=== PATIENT | female | born 1950 | race Caucasian/White ===

== ENCOUNTER 2018-04-13 12:08 | Inpatient (IN) | payer MEDICARE, OTHER ==
[2018-04-13] MEDS: DIAZEPAM 5 MG TAB PO (07:00)
[2018-04-13] MEDS: SOD CHLORIDE 0.45% 1,000 ML IV (07:00)
[2018-04-13] MEDS: FAMOTIDINE 20 MG TAB PO (07:00)
[2018-04-13] MEDS: DIPHENHYDRAMINE 50 MG CAP PO (07:00)
[2018-04-13 13:24] LABS: ADD MAN DIFF? NO
[2018-04-13 13:26] LABS: WHITE BLOOD COUNT 11.6 10^3/ul (4.8-10.8)
[2018-04-13 13:26] LABS: BASOPHIL # 0.1 10^3/ul (0.0-0.1); BASOPHILS % 0.7 % (0.0-2.0); EOSINOPHILS # 0.2 10^3/ul (0.0-0.5); EOSINOPHILS % 1.7 % (0.0-7.0); HEMATOCRIT 38.9 % (37.0-47.0); HEMOGLOBIN 12.6 g/dl (12.0-16.0); LYMPHOCYTES # 2.3 10^3/ul (0.8-2.9); LYMPHOCYTES % 20.1 % (15.0-51.0); MEAN CORPUSCULAR HEMOGLOBIN 31.7 pg (29.0-33.0); MEAN CORPUSCULAR HGB CONC 32.4 g/dl (32.0-37.0); MEAN PLATELET VOLUME 10.9 fl (7.4-10.4); MONOCYTE # 0.6 10^3/ul (0.3-0.9); MONOCYTES % 5.4 % (0.0-11.0); NEUTROPHIL # 8.3 10^3/ul (1.6-7.5); NEUTROPHILS % 71.6 % (39.0-77.0); PLATELET COUNT 257 10^3/UL (140-415); RED BLOOD COUNT 3.97 10^6/ul (4.20-5.40); RED CELL DISTRIBUTION WIDTH 13.9 % (11.5-14.5)
[2018-04-13 13:43] LABS: ANION GAP 13 (8-16); BLOOD UREA NITROGEN 38 mg/dl (7-20); CALCIUM 8.9 mg/dl (8.4-10.2); CARBON DIOXIDE 28 mmol/L (21-31); CHLORIDE 104 mmol/L (97-110); CHOL/HDL RATIO 4.4 RATIO; CHOLESTEROL 183 mg/dl (100-200); CREATININE 1.81 mg/dl (0.44-1.00); GLUCOSE 229 mg/dl (70-220); HDL CHOLESTEROL 41 mg/dl (35-98); LDL CHOLESTEROL,CALCULATED 108 mg/dl; POTASSIUM 4.8 mmol/L (3.5-5.1); SODIUM 140 mmol/L (135-144); TRIGLYCERIDES 168 mg/dl (0-149)
[2018-04-13 13:44] LABS: PROTIME 12.2 Sec (11.9-14.9)
[2018-04-13 13:45] LABS: PARTIAL THROMBOPLASTIN TIME 27.7 Sec (25.0-35.0)
[2018-04-13] MEDS ORDERED: VERAPAMIL 5 MG INJ (14:32)
[2018-04-13] MEDS ORDERED: FENTAnyl 50 MCG/ML VIAL ×2 (14:32→15:23)
[2018-04-13] MEDS ORDERED: MIDAZOLAM 1 MG/ML 2 ML INJ (14:32)
[2018-04-13] MEDS ORDERED: NITROGLYCERIN (IC) 100 MCG/ML INJ (14:32)
[2018-04-13] MEDS ORDERED: HEPARIN 1000 UNITS/ML 10 ML INJ (14:32)
[2018-04-13] MEDS ORDERED: IODIXANOL LOCM 100 ML BTL (14:32)
[2018-04-13] MEDS ORDERED: BIVALIRUDIN 250MG /NS 50 ML 50 ML IVPB ×2 (16:23→16:33)
[2018-04-13] MEDS ORDERED: TICAGRELOR 90 MG TABLET (16:23)
[2018-04-13] MEDS ORDERED: ASPIRIN 325 MG TAB (17:04)
[2018-04-13] MEDS ORDERED: AL HYDROX/MG HYDROX/SIMETH 30 ML CUP PO (17:30)
[2018-04-13] MEDS ORDERED: GLUCOSE GEL 15 GRAM TUBE BUCCAL (18:00)
[2018-04-13] MEDS ORDERED: GLUCOSE GEL 15 GRAM TUBE PO ×2 (18:00)
[2018-04-13] MEDS ORDERED: DEXTROSE 50% 50 ML SYRINGE IV ×2 (18:00)
[2018-04-13] MEDS ORDERED: GLUCAGON 1 MG INJ IM (18:00)
[2018-04-13] MEDS: SOD CHLORIDE 0.9% 1,000 ML IV (18:11)
[2018-04-13] MEDS: morphine 2 MG INJ IV (19:00)
[2018-04-13] MEDS ORDERED: LOPERAMIDE 2 MG CAP PO (19:00)
[2018-04-13] MEDS ORDERED: NITROGLYCERIN (SL) 0.4 MG TAB SL (19:00)
[2018-04-13 19:32] LABS: HEMOGLOBIN A1C 6.8 % (0-5.9)
[2018-04-13] MEDS: ACETYLCYSTEINE 600 MG CAP PO (20:18)
[2018-04-13] MEDS: ATORVASTATIN 20 MG TAB PO (20:18)
[2018-04-13] MEDS: INSULIN ASPART [NOVOLOG] 3 ML PEN SC (20:22)
[2018-04-13] MEDS: INSULIN GLARGINE [LANTus] (100 UNITS/ML) SYG SC (20:22)
[2018-04-13] MEDS: TICAGRELOR 90 MG TABLET PO (20:22)
[2018-04-14] MEDS: ZOLPIDEM 5 MG TAB PO (00:43)
[2018-04-14] MEDS: SOD CHLORIDE 0.45% 1,000 ML IV ×2 (02:00→04:04)
[2018-04-14] MEDS: ACCU-CHEK XX (02:00)
[2018-04-14] MEDS: LORAZEPAM 2 MG INJ IV ×3 (03:59→19:11)
[2018-04-14] MEDS: ONDANSETRON 4 MG INJ IV (04:45)
[2018-04-14 05:22] LABS: ADD MAN DIFF? NO
[2018-04-14 05:27] LABS: WHITE BLOOD COUNT 10.1 10^3/ul (4.8-10.8)
[2018-04-14 05:27] LABS: BASOPHILS % 0.4 % (0.0-2.0); EOSINOPHILS # 0.2 10^3/ul (0.0-0.5); EOSINOPHILS % 1.5 % (0.0-7.0); HEMOGLOBIN 10.8 g/dl (12.0-16.0); LYMPHOCYTES # 2.1 10^3/ul (0.8-2.9); LYMPHOCYTES % 21.1 % (15.0-51.0); MEAN CORPUSCULAR HEMOGLOBIN 31.1 pg (29.0-33.0); MEAN CORPUSCULAR HGB CONC 31.8 g/dl (32.0-37.0); MEAN PLATELET VOLUME 11.3 fl (7.4-10.4); MONOCYTE # 0.8 10^3/ul (0.3-0.9); NEUTROPHIL # 6.9 10^3/ul (1.6-7.5); NEUTROPHILS % 68.4 % (39.0-77.0); PLATELET COUNT 235 10^3/UL (140-415); RED BLOOD COUNT 3.47 10^6/ul (4.20-5.40); RED CELL DISTRIBUTION WIDTH 14.2 % (11.5-14.5)
[2018-04-14 05:51] LABS: ANION GAP 10 (8-16); BLOOD UREA NITROGEN 39 mg/dl (7-20); CALCIUM 8.4 mg/dl (8.4-10.2); CARBON DIOXIDE 25 mmol/L (21-31); CHLORIDE 107 mmol/L (97-110); CREATINE KINASE 100 IU/L (23-200); GLUCOSE 224 mg/dl (70-220); POTASSIUM 4.3 mmol/L (3.5-5.1); SODIUM 138 mmol/L (135-144)
[2018-04-14 05:54] LABS: CK INDEX 1.4; CK-MB 1.37 ng/ml (0.0-2.4)
[2018-04-14 06:00] LABS: TROPONIN-I 0.328 ng/ml (0.000-0.120)
[2018-04-14] MEDS: ASPIRIN (EC) 81 MG TAB PO (08:48)
[2018-04-14] MEDS: ACETYLCYSTEINE 600 MG CAP PO ×2 (08:49→20:22)
[2018-04-14] MEDS: CALCITRIOL 0.25 MCG CAP PO (08:49)
[2018-04-14] MEDS: TICAGRELOR 90 MG TABLET PO ×2 (08:49→20:33)
[2018-04-14] MEDS: INSULIN ASPART [NOVOLOG] 3 ML PEN SC ×6 (08:51→20:31)
[2018-04-14] MEDS ORDERED: AL HYDROX/MG HYDROX/SIMETH 30 ML CUP PO (10:30)
[2018-04-14 11:27] LABS: FREE T4 (FREE THYROXINE) 1.34 ng/dl (0.78-2.44)
[2018-04-14] MEDS: SOD CHLORIDE 0.9% 1,000 ML IV (11:58)
[2018-04-14] MEDS: LEVOTHYROXINE 75 MCG TAB PO (11:58)
[2018-04-14] MEDS: PANTOPRAZOLE 40 MG INJ IV (12:02)
[2018-04-14 16:13] LABS: CREATINE KINASE 107 IU/L (23-200)
[2018-04-14 16:27] LABS: CK-MB 4.31 ng/ml (0.0-2.4)
[2018-04-14] MEDS: ATORVASTATIN 20 MG TAB PO (20:22)
[2018-04-14] MEDS: INSULIN GLARGINE [LANTus] (100 UNITS/ML) SYG SC (20:48)
[2018-04-15] MEDS: ZOLPIDEM 5 MG TAB PO (01:07)
[2018-04-15] MEDS: LORAZEPAM 2 MG INJ IV ×3 (01:08→18:41)
[2018-04-15] MEDS: SOD CHLORIDE 0.9% 1,000 ML IV ×2 (01:08→17:55)
[2018-04-15] MEDS: ACCU-CHEK XX (02:00)
[2018-04-15 05:38] LABS: ADD MAN DIFF? NO
[2018-04-15 05:45] LABS: WHITE BLOOD COUNT 10.8 10^3/ul (4.8-10.8)
[2018-04-15 05:45] LABS: BASOPHIL # 0.1 10^3/ul (0.0-0.1); BASOPHILS % 0.5 % (0.0-2.0); EOSINOPHILS # 0.2 10^3/ul (0.0-0.5); EOSINOPHILS % 1.8 % (0.0-7.0); HEMATOCRIT 30.5 % (37.0-47.0); HEMOGLOBIN 9.8 g/dl (12.0-16.0); LYMPHOCYTES # 2.1 10^3/ul (0.8-2.9); LYMPHOCYTES % 19.1 % (15.0-51.0); MEAN CORPUSCULAR HEMOGLOBIN 31.5 pg (29.0-33.0); MEAN CORPUSCULAR HGB CONC 32.1 g/dl (32.0-37.0); MEAN CORPUSCULAR VOLUME 98.1 fl (82.0-101.0); MEAN PLATELET VOLUME 11.7 fl (7.4-10.4); MONOCYTE # 0.9 10^3/ul (0.3-0.9); NEUTROPHIL # 7.6 10^3/ul (1.6-7.5); NEUTROPHILS % 70.1 % (39.0-77.0); PLATELET COUNT 215 10^3/UL (140-415); RED BLOOD COUNT 3.11 10^6/ul (4.20-5.40); RED CELL DISTRIBUTION WIDTH 14.4 % (11.5-14.5)
[2018-04-15 06:01] LABS: ANION GAP 12 (8-16); BLOOD UREA NITROGEN 48 mg/dl (7-20); CALCIUM 8.2 mg/dl (8.4-10.2); CARBON DIOXIDE 23 mmol/L (21-31); CHLORIDE 109 mmol/L (97-110); CREATININE 2.24 mg/dl (0.44-1.00); GLUCOSE 162 mg/dl (70-220); POTASSIUM 4.7 mmol/L (3.5-5.1); SODIUM 139 mmol/L (135-144)
[2018-04-15] MEDS: LEVOTHYROXINE 75 MCG TAB PO (06:11)
[2018-04-15 06:24] LABS: MAGNESIUM 2.5 mg/dl (1.7-2.5)
[2018-04-15 06:24] LABS: PHOSPHORUS 3.7 mg/dl (2.5-4.9)
[2018-04-15] MEDS ORDERED: LEVOTHYROXINE 75 MCG TAB PO (07:00)
[2018-04-15] MEDS: ACETYLCYSTEINE 600 MG CAP PO (08:29)
[2018-04-15] MEDS: ASPIRIN (EC) 81 MG TAB PO (08:30)
[2018-04-15] MEDS: CALCITRIOL 0.25 MCG CAP PO (08:30)
[2018-04-15] MEDS: INSULIN ASPART [NOVOLOG] 3 ML PEN SC ×7 (08:31→20:36)
[2018-04-15] MEDS: TICAGRELOR 90 MG TABLET PO ×2 (08:33→20:40)
[2018-04-15] MEDS: ATROPINE 1 MG/10 ML SYRINGE IV (11:11)
[2018-04-15 12:02] LABS: AADO2 Arterial 28.2 mmHg (7.0-24.0); Allen Test ACCEPTAB; Arterial Base Excess -3.6 mmol/L (-3.0-3); Arterial Blood Gas Oxygen Sat 95.1 mmHG (95.0-98.0); Arterial COHb 0.1 % (0.0-3.0); Arterial Fraction of Oxyhgb 94.7 % (93.0-99.0); Arterial MetHb 0.3 % (0.0-1.5); Arterial pCO2 36.4 mmhg (35-45); MODE ROOM AIR; Site Right Radial
[2018-04-15] MEDS: ISOSORBIDE DINITRATE 10 MG TAB PO ×2 (13:03→20:37)
[2018-04-15 13:08] LABS: ADD UMIC YES; UR ASCORBIC ACID 20 mg/dL (NEGATIVE); UR BACTERIA FEW /HPF (NONE SEEN); UR BILIRUBIN (Dip) NEGATIVE (NEGATIVE); UR BLOOD (Dip) NEGATIVE (NEGATIVE); UR CLARITY SLIGHTLY CLOUDY (CLEAR); UR COLOR YELLOW (YELLOW); UR GLUCOSE (Dip) NEGATIVE (NEGATIVE); UR KETONES (Dip) NEGATIVE (NEGATIVE); UR LEUKOCYTE ESTERASE (Dip) TRACE Leu/ul (NEGATIVE); UR MUCUS FEW /HPF (NONE SEEN); UR NITRITE (Dip) NEGATIVE (NEGATIVE); UR RBC 1 /HPF (0-5); UR TOTAL PROTEIN (Dip) NEGATIVE (NEGATIVE); UR UROBILINOGEN (Dip) NEGATIVE (NEGATIVE); UR WBC 17 /HPF (0-5)
[2018-04-15 14:24] LABS: CREATINE KINASE 117 IU/L (23-200)
[2018-04-15 14:37] LABS: CK INDEX 3.1; CK-MB 3.57 ng/ml (0.0-2.4)
[2018-04-15 18:57] LABS: CREATINE KINASE 122 IU/L (23-200)
[2018-04-15 19:08] LABS: CK INDEX 2.7; CK-MB 3.31 ng/ml (0.0-2.4)
[2018-04-15] MEDS: morphine 2 MG INJ IV (20:01)
[2018-04-15] MEDS: ONDANSETRON 4 MG INJ IV (20:08)
[2018-04-15] MEDS: ATORVASTATIN 20 MG TAB PO (20:41)
[2018-04-15] MEDS: INSULIN GLARGINE [LANTus] (100 UNITS/ML) SYG SC (21:00)
[2018-04-16] MEDS: ACCU-CHEK XX (02:00)
[2018-04-16] MEDS: ZOLPIDEM 5 MG TAB PO ×2 (04:08→21:30)
[2018-04-16 05:31] LABS: ADD MAN DIFF? NO
[2018-04-16 05:44] LABS: BASOPHIL # 0.1 10^3/ul (0.0-0.1); BASOPHILS % 0.6 % (0.0-2.0); EOSINOPHILS # 0.2 10^3/ul (0.0-0.5); EOSINOPHILS % 1.9 % (0.0-7.0); HEMATOCRIT 30.8 % (37.0-47.0); HEMOGLOBIN 9.6 g/dl (12.0-16.0); LYMPHOCYTES # 1.8 10^3/ul (0.8-2.9); LYMPHOCYTES % 19.7 % (15.0-51.0); MEAN CORPUSCULAR HEMOGLOBIN 31.5 pg (29.0-33.0); MEAN CORPUSCULAR HGB CONC 31.2 g/dl (32.0-37.0); MEAN PLATELET VOLUME 11.7 fl (7.4-10.4); MONOCYTE # 0.7 10^3/ul (0.3-0.9); MONOCYTES % 7.3 % (0.0-11.0); NEUTROPHIL # 6.3 10^3/ul (1.6-7.5); NEUTROPHILS % 69.9 % (39.0-77.0); PLATELET COUNT 204 10^3/UL (140-415); RED BLOOD COUNT 3.05 10^6/ul (4.20-5.40); RED CELL DISTRIBUTION WIDTH 14.5 % (11.5-14.5)
[2018-04-16 06:06] LABS: PHOSPHORUS 3.9 mg/dl (2.5-4.9)
[2018-04-16 06:06] LABS: MAGNESIUM 2.4 mg/dl (1.7-2.5)
[2018-04-16 06:24] LABS: ANION GAP 9 (8-16); BLOOD UREA NITROGEN 43 mg/dl (7-20); CALCIUM 8.4 mg/dl (8.4-10.2); CARBON DIOXIDE 21 mmol/L (21-31); CHLORIDE 112 mmol/L (97-110); CREATININE 2.14 mg/dl (0.44-1.00); GLUCOSE 120 mg/dl (70-220); SODIUM 138 mmol/L (135-144)
[2018-04-16] MEDS: LEVOTHYROXINE 75 MCG TAB PO (06:49)
[2018-04-16] MEDS: INSULIN ASPART [NOVOLOG] 3 ML PEN SC ×7 (07:35→20:44)
[2018-04-16] MEDS: TICAGRELOR 90 MG TABLET PO ×2 (08:55→20:45)
[2018-04-16] MEDS: ASPIRIN (EC) 81 MG TAB PO (08:56)
[2018-04-16] MEDS: CALCITRIOL 0.25 MCG CAP PO (08:58)
[2018-04-16] MEDS: ISOSORBIDE DINITRATE 10 MG TAB PO ×3 (08:58→20:46)
[2018-04-16] MEDS ORDERED: CEFAZOLIN 1 GM/50 ML (PMX) 50 ML IVPB (14:18)
[2018-04-16] MEDS ORDERED: POLYMYXIN/BACITRACIN 1L IRRIG (14:23)
[2018-04-16] MEDS ORDERED: FENTAnyl 50 MCG/ML VIAL (14:46)
[2018-04-16] MEDS ORDERED: MIDAZOLAM 1 MG/ML 2 ML INJ (14:47)
[2018-04-16] MEDS ORDERED: ETOMIDATE 20 MG INJ (14:47)
[2018-04-16] MEDS ORDERED: LEVALBUTEROL (NEB) 1.25 MG/0.5 ML AMP (15:29)
[2018-04-16] MEDS ORDERED: IPRATROPIUM (NEB) 0.5 MG/2.5 ML AMP (15:29)
[2018-04-16] MEDS ORDERED: DIPHENHYDRAMINE 50 MG INJ IV (15:30)
[2018-04-16] MEDS ORDERED: ONDANSETRON 4 MG INJ IV (15:30)
[2018-04-16] MEDS ORDERED: hydrALAzine 20 MG INJ IV (15:30)
[2018-04-16] MEDS ORDERED: FENTAnyl 50 MCG/ML VIAL IV (15:30)
[2018-04-16] MEDS: IPRATROPIUM (NEB) 0.5 MG/2.5 ML AMP HHN (15:41)
[2018-04-16] MEDS: LEVALBUTEROL (NEB) 1.25 MG/0.5 ML AMP HHN (15:42)
[2018-04-16] MEDS ORDERED: morphine 2 MG INJ IV (16:30)
[2018-04-16] MEDS ORDERED: [UNRECOGNIZED DRUG - REMARK] XX (16:30)
[2018-04-16] MEDS: SOD CHLORIDE 0.9% 1,000 ML IV (16:46)
[2018-04-16] MEDS: CEFAZOLIN 1 GM/50 ML (PMX) 50 ML IVPB (16:46)
[2018-04-16] MEDS: METOCLOPRAMIDE 10 MG INJ IV (16:53)
[2018-04-16] MEDS: INSULIN GLARGINE [LANTus] (100 UNITS/ML) SYG SC (20:44)
[2018-04-16] MEDS: ATORVASTATIN 20 MG TAB PO (20:47)
[2018-04-17] MEDS: morphine 2 MG INJ IV ×3 (01:25→20:44)
[2018-04-17] MEDS: ONDANSETRON 4 MG INJ IV ×3 (01:25→20:44)
[2018-04-17] MEDS: ACCU-CHEK XX (02:22)
[2018-04-17] MEDS: CEFAZOLIN 1 GM/50 ML (PMX) 50 ML IVPB ×2 (04:21→16:52)
[2018-04-17] MEDS: LEVOTHYROXINE 75 MCG TAB PO (06:20)
[2018-04-17] MEDS: INSULIN ASPART [NOVOLOG] 3 ML PEN SC ×7 (07:35→20:39)
[2018-04-17] MEDS: ISOSORBIDE DINITRATE 10 MG TAB PO ×3 (08:56→20:39)
[2018-04-17] MEDS: CALCITRIOL 0.25 MCG CAP PO (08:56)
[2018-04-17] MEDS: ASPIRIN (EC) 81 MG TAB PO (08:56)
[2018-04-17] MEDS: TICAGRELOR 90 MG TABLET PO ×2 (08:58→20:42)
[2018-04-17 13:00] LABS: ADD MAN DIFF? NO
[2018-04-17 13:03] LABS: WHITE BLOOD COUNT 8.9 10^3/ul (4.8-10.8)
[2018-04-17 13:03] LABS: BASOPHILS % 0.4 % (0.0-2.0); EOSINOPHILS # 0.2 10^3/ul (0.0-0.5); EOSINOPHILS % 1.9 % (0.0-7.0); HEMATOCRIT 27.9 % (37.0-47.0); HEMOGLOBIN 8.9 g/dl (12.0-16.0); LYMPHOCYTES # 1.3 10^3/ul (0.8-2.9); LYMPHOCYTES % 14.1 % (15.0-51.0); MEAN CORPUSCULAR HEMOGLOBIN 31.2 pg (29.0-33.0); MEAN CORPUSCULAR HGB CONC 31.9 g/dl (32.0-37.0); MEAN CORPUSCULAR VOLUME 97.9 fl (82.0-101.0); MEAN PLATELET VOLUME 11.3 fl (7.4-10.4); MONOCYTE # 0.7 10^3/ul (0.3-0.9); MONOCYTES % 7.7 % (0.0-11.0); NEUTROPHIL # 6.7 10^3/ul (1.6-7.5); NEUTROPHILS % 75.2 % (39.0-77.0); PLATELET COUNT 248 10^3/UL (140-415); RED BLOOD COUNT 2.85 10^6/ul (4.20-5.40); RED CELL DISTRIBUTION WIDTH 14.6 % (11.5-14.5)
[2018-04-17 13:20] LABS: ANION GAP 9 (8-16); BLOOD UREA NITROGEN 32 mg/dl (7-20); CALCIUM 8.4 mg/dl (8.4-10.2); CARBON DIOXIDE 22 mmol/L (21-31); CHLORIDE 113 mmol/L (97-110); CREATININE 1.71 mg/dl (0.44-1.00); GLUCOSE 95 mg/dl (70-220); POTASSIUM 4.2 mmol/L (3.5-5.1); SODIUM 140 mmol/L (135-144)
[2018-04-17] MEDS: FUROSEMIDE 20 MG INJ IV (13:53)
[2018-04-17] MEDS: ATORVASTATIN 20 MG TAB PO (20:39)
[2018-04-17] MEDS: INSULIN GLARGINE [LANTus] (100 UNITS/ML) SYG SC (21:18)
[2018-04-18] MEDS: ACCU-CHEK XX (02:00)
[2018-04-18] MEDS: CEFAZOLIN 1 GM/50 ML (PMX) 50 ML IVPB ×2 (04:11→16:52)
[2018-04-18] MEDS: LEVOTHYROXINE 75 MCG TAB PO (05:10)
[2018-04-18 06:50] LABS: ALANINE AMINOTRANSFERASE 16 IU/L (13-69); ALBUMIN/GLOBULIN RATIO 0.93; ALKALINE PHOSPHATASE 68 IU/L (42-121); ANION GAP 11 (8-16); ASPARTATE AMINO TRANSFERASE 27 IU/L (15-46); BILIRUBIN,INDIRECT 0.2 mg/dl (0-1.1); BILIRUBIN,TOTAL 0.2 mg/dl (0.2-1.3); BLOOD UREA NITROGEN 33 mg/dl (7-20); CALCIUM 8.6 mg/dl (8.4-10.2); CARBON DIOXIDE 21 mmol/L (21-31); CHLORIDE 112 mmol/L (97-110); CREATININE 1.87 mg/dl (0.44-1.00); GLUCOSE 152 mg/dl (70-220); POTASSIUM 3.8 mmol/L (3.5-5.1); SODIUM 140 mmol/L (135-144); TOTAL PROTEIN 6.2 g/dl (6.1-8.1)
[2018-04-18] MEDS: INSULIN ASPART [NOVOLOG] 3 ML PEN SC ×7 (07:44→20:05)
[2018-04-18] MEDS: ASPIRIN (EC) 81 MG TAB PO (08:18)
[2018-04-18] MEDS: ISOSORBIDE DINITRATE 10 MG TAB PO ×3 (08:18→20:09)
[2018-04-18] MEDS: CALCITRIOL 0.25 MCG CAP PO (08:18)
[2018-04-18] MEDS: FUROSEMIDE 20 MG INJ IV (08:18)
[2018-04-18] MEDS: TICAGRELOR 90 MG TABLET PO ×2 (08:23→20:07)
[2018-04-18] MEDS: INSULIN GLARGINE [LANTus] (100 UNITS/ML) SYG SC (20:08)
[2018-04-18] MEDS: ATORVASTATIN 20 MG TAB PO (20:08)
[2018-04-18] MEDS: ONDANSETRON 4 MG INJ IV (22:09)
[2018-04-18] MEDS: morphine 2 MG INJ IV (22:11)
[2018-04-19] MEDS: ACCU-CHEK XX (02:00)
[2018-04-19] MEDS: CEFAZOLIN 1 GM/50 ML (PMX) 50 ML IVPB (04:45)
[2018-04-19] MEDS: LEVOTHYROXINE 75 MCG TAB PO (04:55)
[2018-04-19] MEDS: INSULIN ASPART [NOVOLOG] 3 ML PEN SC ×7 (07:54→22:23)
[2018-04-19] MEDS: FUROSEMIDE 20 MG INJ IV ×2 (08:38→17:03)
[2018-04-19] MEDS: ISOSORBIDE DINITRATE 10 MG TAB PO ×3 (08:39→20:52)
[2018-04-19] MEDS: ASPIRIN (EC) 81 MG TAB PO (08:39)
[2018-04-19] MEDS: TICAGRELOR 90 MG TABLET PO ×2 (08:53→20:51)
[2018-04-19] MEDS: CALCITRIOL 0.25 MCG CAP PO (10:38)
[2018-04-19] MEDS: BISACODYL (EC) 5 MG TAB PO (13:38)
[2018-04-19 13:43] LABS: CREATINE KINASE 90 IU/L (23-200)
[2018-04-19 13:57] LABS: CK INDEX 0.7; CK-MB 0.66 ng/ml (0.0-2.4)
[2018-04-19 14:02] LABS: TROPONIN-I 0.201 ng/ml (0.000-0.120)
[2018-04-19] MEDS: MEROPENEM 500MG/50 ML (PMX) 50 ML IVPB ×2 (14:06→20:53)
[2018-04-19] MEDS: ATORVASTATIN 20 MG TAB PO (20:50)
[2018-04-19] MEDS ORDERED: NA PHOSPHATE/BIPHOS 133 ML ENEMA PR (21:30)
[2018-04-19] MEDS: MAGNESIUM HYDROXIDE 30ML CUP PO (22:10)
[2018-04-19] MEDS: DIPHENHYDRAMINE 25 MG CAP PO (22:10)
[2018-04-19] MEDS: LORAZEPAM 2 MG INJ IV (22:14)
[2018-04-19] MEDS: INSULIN GLARGINE [LANTus] (100 UNITS/ML) SYG SC (22:22)
[2018-04-20] MEDS: ACCU-CHEK XX (02:19)
[2018-04-20] MEDS: LEVOTHYROXINE 75 MCG TAB PO (06:23)
[2018-04-20 07:44] LABS: MAGNESIUM 1.7 mg/dl (1.7-2.5)
[2018-04-20 07:44] LABS: PHOSPHORUS 4.3 mg/dl (2.5-4.9)
[2018-04-20] MEDS: INSULIN ASPART [NOVOLOG] 3 ML PEN SC ×7 (07:44→21:00)
[2018-04-20 07:49] LABS: CREATINE KINASE 75 IU/L (23-200)
[2018-04-20 07:51] LABS: ANION GAP 13 (8-16); BLOOD UREA NITROGEN 40 mg/dl (7-20); CALCIUM 9.3 mg/dl (8.4-10.2); CARBON DIOXIDE 27 mmol/L (21-31); CHLORIDE 104 mmol/L (97-110); CREATININE 1.87 mg/dl (0.44-1.00); GLUCOSE 152 mg/dl (70-220); POTASSIUM 3.7 mmol/L (3.5-5.1); SODIUM 140 mmol/L (135-144)
[2018-04-20 07:57] LABS: CK INDEX 0.7; CK-MB 0.55 ng/ml (0.0-2.4); TROPONIN-I 0.246 ng/ml (0.000-0.120)
[2018-04-20] MEDS: ISOSORBIDE DINITRATE 10 MG TAB PO ×3 (08:11→22:00)
[2018-04-20] MEDS: CALCITRIOL 0.25 MCG CAP PO (08:11)
[2018-04-20] MEDS: ASPIRIN (EC) 81 MG TAB PO (08:11)
[2018-04-20] MEDS: FUROSEMIDE 20 MG INJ IV (08:12)
[2018-04-20] MEDS: MEROPENEM 500MG/50 ML (PMX) 50 ML IVPB ×2 (08:12→21:45)
[2018-04-20] MEDS: TICAGRELOR 90 MG TABLET PO ×2 (08:55→21:53)
[2018-04-20] MEDS: MAGNESIUM HYDROXIDE 30ML CUP PO (12:51)
[2018-04-20] MEDS: ATORVASTATIN 20 MG TAB PO (21:46)
[2018-04-20] MEDS: DIPHENHYDRAMINE 50 MG CAP PO (21:46)
[2018-04-20] MEDS: INSULIN GLARGINE [LANTus] (100 UNITS/ML) SYG SC (21:54)
[2018-04-20] MEDS: LORAZEPAM 2 MG INJ IV (21:55)
[2018-04-20] MEDS ORDERED: morphine LIQ (10 MG/5 ML) CUP PO (22:00)
[2018-04-20] MEDS: DOCUSATE SODIUM 100 MG CAP PO (23:07)
[2018-04-21] MEDS: ACCU-CHEK XX (02:00)
[2018-04-21] MEDS: LEVOTHYROXINE 75 MCG TAB PO (06:45)
[2018-04-21] MEDS: FUROSEMIDE 20 MG INJ IV (07:49)
[2018-04-21] MEDS: DOCUSATE SODIUM 100 MG CAP PO ×2 (07:49→20:36)
[2018-04-21] MEDS: CALCITRIOL 0.25 MCG CAP PO (07:49)
[2018-04-21] MEDS: ASPIRIN (EC) 81 MG TAB PO (07:49)
[2018-04-21] MEDS: ISOSORBIDE DINITRATE 10 MG TAB PO ×3 (07:50→20:36)
[2018-04-21] MEDS: MEROPENEM 500MG/50 ML (PMX) 50 ML IVPB ×2 (07:50→20:46)
[2018-04-21] MEDS: INSULIN ASPART [NOVOLOG] 3 ML PEN SC ×7 (08:05→20:42)
[2018-04-21] MEDS: TICAGRELOR 90 MG TABLET PO ×2 (08:06→20:39)
[2018-04-21 08:57] LABS: ANION GAP 13 (8-16); BLOOD UREA NITROGEN 50 mg/dl (7-20); CALCIUM 9.7 mg/dl (8.4-10.2); CARBON DIOXIDE 25 mmol/L (21-31); CHLORIDE 103 mmol/L (97-110); GLUCOSE 159 mg/dl (70-220); POTASSIUM 3.6 mmol/L (3.5-5.1); SODIUM 137 mmol/L (135-144)
[2018-04-21] MEDS: ATORVASTATIN 20 MG TAB PO (20:36)
[2018-04-21] MEDS: DIPHENHYDRAMINE 50 MG CAP PO (20:36)
[2018-04-21] MEDS: INSULIN GLARGINE [LANTus] (100 UNITS/ML) SYG SC (20:41)
[2018-04-22] MEDS: ZOLPIDEM 5 MG TAB PO (01:21)
[2018-04-22] MEDS: ACCU-CHEK XX (02:00)
[2018-04-22] MEDS: LEVOTHYROXINE 75 MCG TAB PO (06:06)
[2018-04-22] MEDS: LORAZEPAM 2 MG INJ IV (06:06)
[2018-04-22 06:08] LABS: ADD MAN DIFF? NO
[2018-04-22 06:16] LABS: BASOPHIL # 0.1 10^3/ul (0.0-0.1); BASOPHILS % 0.7 % (0.0-2.0); EOSINOPHILS # 0.5 10^3/ul (0.0-0.5); EOSINOPHILS % 4.5 % (0.0-7.0); HEMATOCRIT 31.1 % (37.0-47.0); HEMOGLOBIN 9.9 g/dl (12.0-16.0); LYMPHOCYTES # 2.5 10^3/ul (0.8-2.9); LYMPHOCYTES % 22.7 % (15.0-51.0); MEAN CORPUSCULAR HEMOGLOBIN 30.7 pg (29.0-33.0); MEAN CORPUSCULAR HGB CONC 31.8 g/dl (32.0-37.0); MEAN CORPUSCULAR VOLUME 96.3 fl (82.0-101.0); MEAN PLATELET VOLUME 10.6 fl (7.4-10.4); MONOCYTE # 0.8 10^3/ul (0.3-0.9); MONOCYTES % 6.7 % (0.0-11.0); NEUTROPHIL # 7.2 10^3/ul (1.6-7.5); NEUTROPHILS % 64.2 % (39.0-77.0); PLATELET COUNT 346 10^3/UL (140-415); RED BLOOD COUNT 3.23 10^6/ul (4.20-5.40); RED CELL DISTRIBUTION WIDTH 14.5 % (11.5-14.5)
[2018-04-22 06:16] LABS: WHITE BLOOD COUNT 11.2 10^3/ul (4.8-10.8)
[2018-04-22 06:46] LABS: PHOSPHORUS 4.5 mg/dl (2.5-4.9)
[2018-04-22 06:46] LABS: ANION GAP 14 (8-16); BLOOD UREA NITROGEN 56 mg/dl (7-20); CALCIUM 9.4 mg/dl (8.4-10.2); CARBON DIOXIDE 24 mmol/L (21-31); CHLORIDE 103 mmol/L (97-110); CREATININE 2.01 mg/dl (0.44-1.00); GLUCOSE 174 mg/dl (70-220); POTASSIUM 3.5 mmol/L (3.5-5.1); SODIUM 137 mmol/L (135-144)
[2018-04-22] MEDS: ASPIRIN (EC) 81 MG TAB PO (08:47)
[2018-04-22] MEDS: CALCITRIOL 0.25 MCG CAP PO (08:47)
[2018-04-22] MEDS: DOCUSATE SODIUM 100 MG CAP PO (08:47)
[2018-04-22] MEDS: ISOSORBIDE DINITRATE 10 MG TAB PO ×2 (08:47→13:06)
[2018-04-22] MEDS: MEROPENEM 500MG/50 ML (PMX) 50 ML IVPB (08:47)
[2018-04-22] MEDS: INSULIN ASPART [NOVOLOG] 3 ML PEN SC ×4 (08:50→11:46)
[2018-04-22] MEDS: TICAGRELOR 90 MG TABLET PO (08:51)
[2018-04-22] MEDS ORDERED: FUROSEMIDE 20 MG TAB PO (09:00)
[2018-04-22] MEDS ORDERED: ERTAPENEM SODIUM 1 GM in SOD CHLORIDE 0.9% 100 ML IVPB (11:30)
[2018-04-22] MEDS: ERTAPENEM SODIUM 0.5 GM in SOD CHLORIDE 0.9% 100 ML IVPB (13:06)
== END 2018-04-22 15:15 | disposition home health service (06) | DRG 242 ==
LOC: SDS 12:08 → TEL 04-17 15:52 → SDS 12:08 → ICU 17:30 → SDS 04-15 15:26 → REC 04-15 15:26 → ICU 04-15 17:17
PROVIDERS: Internal Medicine
PROC: 027035Z Dilation of Coronary Artery, One Artery with Two Drug-eluting Intraluminal Devices, Percutaneous Approach (ICD-10-PCS; 2018-04-13 14:00)
PROC: 4A023N7 Measurement of Cardiac Sampling and Pressure, Left Heart, Percutaneous Approach (ICD-10-PCS; 2018-04-13 14:00)
PROC: B2011ZZ Plain Radiography of Multiple Coronary Arteries using Low Osmolar Contrast (ICD-10-PCS; 2018-04-13 14:00)
PROC: 02HK3JZ Insertion of Pacemaker Lead into Right Ventricle, Percutaneous Approach (ICD-10-PCS; principal; 2018-04-13 14:26)
PROC: 0JH604Z Insertion of Pacemaker, Single Chamber into Chest Subcutaneous Tissue and Fascia, Open Approach (ICD-10-PCS; 2018-04-13 14:26)
DX: I25.10 Atherosclerotic heart disease of native coronary artery without angina pectoris (principal); I50.33 Acute on chronic diastolic (congestive) heart failure; Z68.41 Body mass index [BMI] 40.0-44.9, adult; N17.9 Acute kidney failure, unspecified; I13.0 Hypertensive heart and chronic kidney disease with heart failure and stage 1 through stage 4 chronic kidney disease, or unspecified chronic kidney disease; N39.0 Urinary tract infection, site not specified; R00.1 Bradycardia, unspecified; E03.9 Hypothyroidism, unspecified; I10 Essential (primary) hypertension; I73.9 Peripheral vascular disease, unspecified; N18.9 Chronic kidney disease, unspecified; F41.9 Anxiety disorder, unspecified; E66.01 Morbid (severe) obesity due to excess calories; I44.7 Left bundle-branch block, unspecified; E11.9 Type 2 diabetes mellitus without complications
CPT/HCPCS: 36600; 71045; 76536; 80048; 80053; 80061; 81001; 82550; 82553; 82803; 82962; 83036; 83735; 84100; 84439; 84443; 84484; 85025; 85610; 85730; 87081; 87086; 93005; 93458; 93970; 94640; 94660; 97162; 99217

== ENCOUNTER 2018-04-23 10:54 | Emergency (ER) | payer MEDICARE, OTHER ==
[2018-04-23 11:40] LABS: ADD MAN DIFF? NO
[2018-04-23 11:43] LABS: BASOPHIL # 0.1 10^3/ul (0.0-0.1); BASOPHILS % 0.8 % (0.0-2.0); EOSINOPHILS # 0.3 10^3/ul (0.0-0.5); EOSINOPHILS % 2.8 % (0.0-7.0); HEMATOCRIT 32.8 % (37.0-47.0); HEMOGLOBIN 10.8 g/dl (12.0-16.0); LYMPHOCYTES # 2.4 10^3/ul (0.8-2.9); LYMPHOCYTES % 20.1 % (15.0-51.0); MEAN CORPUSCULAR HGB CONC 32.9 g/dl (32.0-37.0); MEAN CORPUSCULAR VOLUME 97.3 fl (82.0-101.0); MEAN PLATELET VOLUME 10.8 fl (7.4-10.4); MONOCYTE # 0.8 10^3/ul (0.3-0.9); MONOCYTES % 6.4 % (0.0-11.0); NEUTROPHIL # 8.3 10^3/ul (1.6-7.5); NEUTROPHILS % 69.2 % (39.0-77.0); PLATELET COUNT 386 10^3/UL (140-415); RED BLOOD COUNT 3.37 10^6/ul (4.20-5.40); RED CELL DISTRIBUTION WIDTH 14.6 % (11.5-14.5)
[2018-04-23 11:43] LABS: WHITE BLOOD COUNT 11.9 10^3/ul (4.8-10.8)
[2018-04-23] MEDS: FUROSEMIDE 40 MG INJ IV (11:52)
[2018-04-23 12:01] LABS: ANION GAP 15 (8-16); BLOOD UREA NITROGEN 54 mg/dl (7-20); CALCIUM 9.4 mg/dl (8.4-10.2); CARBON DIOXIDE 24 mmol/L (21-31); CHLORIDE 105 mmol/L (97-110); CREATININE 1.73 mg/dl (0.44-1.00); GLUCOSE 183 mg/dl (70-220); POTASSIUM 3.9 mmol/L (3.5-5.1); SODIUM 140 mmol/L (135-144)
[2018-04-23 12:16] LABS: B-TYPE NATRIURETIC PEPTIDE 3090 PG/ML (0-125); TROPONIN-I 0.155 ng/ml (0.000-0.120)
== END 2018-04-23 13:26 | disposition home or self-care (01) ==
LOC: E/R 10:54
DX: R06.02 Shortness of breath (principal); E11.9 Type 2 diabetes mellitus without complications; Z79.4 Long term (current) use of insulin; Z98.61 Coronary angioplasty status; Z95.0 Presence of cardiac pacemaker
CPT/HCPCS: 36415; 71045; 80048; 83880; 84484; 85025; 93005; 96374; 99285-25